=== PATIENT | male | born 1995 | race Two or more races ===

== ENCOUNTER 2023-12-07 17:17 | Emergency (ER) | payer SELFPAY ==
[2023-12-07 19:01] LABS: Influenza A by NAA Not Detected (NotDetected); Influenza B by NAA Not Detected (NotDetected); SARS-CoV-2 NAA Rapid Test DETECTED (NotDetected)
== END 2023-12-07 19:23 | disposition home or self-care (01) ==
LOC: NAV ERS 17:17
DX: U07.1 COVID-19 (principal); R11.2 Nausea with vomiting, unspecified
CPT/HCPCS: 99284

== ENCOUNTER 2024-06-01 17:26 | Emergency (ER) | payer SELFPAY ==
[2024-06-01] MEDS ORDERED: methylPREDNISolone Sod Succ/PF 125 MG/2 ML VIAL ONE (18:36)
[2024-06-01] MEDS ORDERED: Ketorolac Tromethamine 30 MG (1 mL) VIAL ONE (18:36)
[2024-06-01] MEDS ORDERED: Ipratropium/Albuterol 3 ML NEB ONE (18:36)
[2024-06-01 18:44] LABS: INR-International Normal Ratio 1.1; Prothrombin Time 13.8 sec (12.0-14.7)
[2024-06-01 18:45] LABS: PTT 35.4 sec (22.9-36.1)
[2024-06-01 18:50] LABS: ALT (SGPT) 20 U/L (Less than 45); AST (SGOT) 30 U/L (11-34); Albumin 4.8 g/dL (3.1-4.5); Alkaline Phosphatase 59 U/L (40-110); Anion Gap 16 mmol/L (10-20); BUN (Urea Nitrogen) 11 mg/dL (8.9-20.6); Bilirubin, Total 0.7 mg/dL (0.3-1.2); Calc. Creatinine Clearance 0 mL/min (70-130); Calcium 9.8 mg/dL (7.8-10.44); Carbon Dioxide 23 mmol/L (22-29); Chloride 101 mmol/L (98-107); Estimated GFR 84; Globulin 3.8 g/dL (2.4-3.5); Glucose 98 mg/dL (70-105); Potassium 4.1 mmol/L (3.5-5.1); Protein, Total 8.6 g/dL (6.0-8.3); Sodium 136 mmol/L (136-145)
[2024-06-01 18:59] LABS: Band 8 % (5-11); Eosinophils 1 % (0-10); Hematocrit 46.9 % (42.0-52.0); Lymphocytes 11 % (21-51); MDiff Complete? YES; Mean Corpuscular Hemoglobin 27.9 pg (27.0-31.0); Mean Platelet Volume 9.8 fL (7.4-10.4); Monocytes 5 % (0-10); Neutrophil 74 % (42-75); Platelet Adequacy Comment Appears Adequate; Platelet Count 192 10x3/uL (130-400); RBC Distribution Width 11.4 % (11.5-14.5); Red Blood Cell (RBC) Count 5.39 mill/uL (4.70-6.10)
[2024-06-01] MEDS ORDERED: Acetaminophen 500 MG TAB ONE (19:01)
[2024-06-01] MEDS ORDERED: Sodium Chloride 0.9% 1,000 ML ONE (19:01)
[2024-06-01] MEDS ORDERED: Oseltamivir 75 MG CAP ONE (19:40)
== END 2024-06-01 20:15 | disposition home or self-care (01) ==
LOC: NAV ERS 17:26
DX: J10.1 Influenza due to other identified influenza virus with other respiratory manifestations (principal); J45.901 Unspecified asthma with (acute) exacerbation; M54.50 Low back pain, unspecified
CPT/HCPCS: 71046; 80053; 83605; 85025; 85610; 85730; 87040; 87149; 87428; 96361; 96374; 96375; J1885; J2919; J7030; J7620